=== PATIENT | male | born 1950 | race Caucasian/White ===

== ENCOUNTER 2016-12-03 22:20 | Inpatient (IN) | payer MEDICARE ==
[~2016-12-03] VITALS: Ht 157.5 cm; Wt 78.5 kg
[2016-12-03] MEDS ORDERED: GLUCOTROL 10 MG10 MG PO (23:39)
[2016-12-03] MEDS ORDERED: FERROUS SULFAT325 M2 PO (23:39)
[2016-12-03] MEDS ORDERED: VITAMIN C 500500 MG PO (23:39)
[2016-12-03] MEDS ORDERED: LIPITOR40 MG PO (23:40)
[2016-12-03] MEDS ORDERED: PLAQUENIL 200200 MG PO (23:40)
[2016-12-03] MEDS ORDERED: JANUVIA100 MG PO (23:40)
[2016-12-03] MEDS ORDERED: SINEMET 10-1001 EACH PO (23:40)
[2016-12-03] MEDS ORDERED: MIRAPEX0.25 MG PO (23:41)
[2016-12-03] MEDS ORDERED: FAMOTIDINE40 MG PO (23:42)
[2016-12-03] MEDS ORDERED: COZAAR25 MG PO (23:42)
[2016-12-04 00:45] LABS: HEMOGLOBIN 11.1 gm/dl (14.0-17.5); RED BLOOD COUNT 3.58 M/UL (4.20-5.50)
[2016-12-04 01:01] LABS: BUN/CREATININE RATIO 20 (0-10)
[2016-12-04 06:28] LABS: HEMOGLOBIN 11.1 gm/dl (14.0-17.5); RED BLOOD COUNT 3.56 M/UL (4.20-5.50); WHITE BLOOD COUNT 5.4 K/UL (4.5-11.0)
[2016-12-04 06:47] LABS: BUN/CREATININE RATIO 19 (0-10)
[2016-12-04 12:36] LABS: HEMOGLOBIN 12.6 gm/dl (14.0-17.5)
[2016-12-04 19:27] LABS: HEMOGLOBIN 11.4 gm/dl (14.0-17.5)
[2016-12-05 00:46] LABS: HEMOGLOBIN 10.1 gm/dl (14.0-17.5)
[2016-12-05 06:06] LABS: HEMOGLOBIN 10.6 gm/dl (14.0-17.5); RED BLOOD COUNT 3.44 M/UL (4.20-5.50); WHITE BLOOD COUNT 4.7 K/UL (4.5-11.0)
[2016-12-05 06:27] LABS: BUN/CREATININE RATIO 11 (0-10)
[2016-12-05 14:00] LABS: HEMOGLOBIN 10.4 gm/dl (14.0-17.5)
[2016-12-05] MEDS ORDERED: HABITROL 21 MG P1 EA TD (17:34)
== END 2016-12-05 18:16 | disposition home or self-care (01) | DRG 920 ==
LOC: MED SURG 4 22:20
PROVIDERS: Internal Medicine Gastroenterology; Physician Assistant Medical; ADMIT Hospitalist
PROC: 0W3P8ZZ Control Bleeding in Gastrointestinal Tract, Via Natural or Artificial Opening Endoscopic (ICD-10-PCS; principal; 2016-12-05 12:15)
DX: K91.840 Postprocedural hemorrhage of a digestive system organ or structure following a digestive system procedure (principal); K62.5 Hemorrhage of anus and rectum; D62 Acute posthemorrhagic anemia; Z85.038 Personal history of other malignant neoplasm of large intestine; Z90.49 Acquired absence of other specified parts of digestive tract; Z86.010 Personal history of colon polyps; E11.9 Type 2 diabetes mellitus without complications; M06.9 Rheumatoid arthritis, unspecified; G89.29 Other chronic pain; M54.5 Low back pain; D69.59 Other secondary thrombocytopenia; F17.210 Nicotine dependence, cigarettes, uncomplicated; I10 Essential (primary) hypertension; E78.5 Hyperlipidemia, unspecified; Z90.2 Acquired absence of lung [part of]; Z88.5 Allergy status to narcotic agent; Z88.0 Allergy status to penicillin; Y83.8 Other surgical procedures as the cause of abnormal reaction of the patient, or of later complication, without mention of misadventure at the time of the procedure; Y92.009 Unspecified place in unspecified non-institutional (private) residence as the place of occurrence of the external cause; K64.0 First degree hemorrhoids
CPT/HCPCS: 36415; 71010; 74000; 80048; 80053; 82962; 83036; 85014; 85018; 85027; C9113; J1956; J7030; J7040